=== PATIENT | female | born 2000 | race Caucasian/White ===

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

== ENCOUNTER 2018-04-09 07:12 | Emergency (ER) | payer OTHER ==
[~2018-04-09] VITALS: Ht 157.5 cm; Wt 80.1 kg
[2018-04-09 07:21] VITALS: Ht 157.5 cm; Wt 80.1 kg
[2018-04-09 13:35] VITALS: BP 122/62
== END 2018-04-09 13:05 | disposition left against medical advice (07) ==
LOC: ED 07:12
DX: J45.901 Unspecified asthma with (acute) exacerbation (principal); J06.9 Acute upper respiratory infection, unspecified
CPT/HCPCS: J3475; J7030; J7512; J7613; J7644; Q0092